=== PATIENT | male | born 1995 ===

== ENCOUNTER 2021-03-15 13:36 | Emergency (ER) | payer SELFPAY ==
[~2021-03-15] VITALS: Ht 160 cm; Wt 77.3 kg
[2021-03-15 13:47] VITALS: BP 129/70
[2021-03-15] MEDS ORDERED: IBUP-2070 PO (13:54)
== END 2021-03-15 15:23 | disposition home or self-care (01) ==
LOC: EMS 13:36
DX: U07.1 COVID-19 (principal); Z79.899 Other long term (current) drug therapy
CPT/HCPCS: 99283; U0003